=== PATIENT | male | born 1945 | race African-American/Black ===

== ENCOUNTER 2016-09-20 11:38 | Emergency (ER) | payer OTHER ==
[~2016-09-20] VITALS: Ht 172.7 cm; Wt 112.0 kg
[2016-09-20] MEDS ORDERED: KETOROLAC 60MG/2ML VIAL IM ONE (14:00)
[2016-09-20 14:36] VITALS: BP 117/77
== END 2016-09-20 14:38 | disposition home or self-care (01) ==
LOC: ER 12:35
DX: M54.2 Cervicalgia (principal); R07.81 Pleurodynia; I10 Essential (primary) hypertension; V49.9XXA Car occupant (driver) (passenger) injured in unspecified traffic accident, initial encounter; Y93.89 Activity, other specified; Y92.89 Other specified places as the place of occurrence of the external cause; Y99.8 Other external cause status; Z87.891 Personal history of nicotine dependence; Z98.890 Other specified postprocedural states
CPT/HCPCS: 71010; 72125; 96372; 99284; J1885